=== PATIENT | male | born 1990 | race Caucasian/White ===

== ENCOUNTER 2016-06-13 16:23 | Emergency (ER) | payer SELFPAY ==
--- NOTE | 2016-06-13 16:45 | ED Physician Documentation ---
General Adult - HISTORIAN Historian: patient - HPI Chief Complaint: General Adult Onset: hours (15:30) Timing: still present Further Comments: yes (Patient states that he took atleast 25 seraquel 200mg tablets at about 3PM. Denies any other medications. Denies any drugs. Patietn states that he was jus trying to go to sleep. Denies that he was trying to harm himself. Patient denies any previous psychiatric problems. No previous suicide attempt. Take seraquil as a sleep aide.) - ROS CONST: no problems. denies: fever, chills - PAST HX Past History: none Other History: none Surgeries/Procedures: none Allergies/Adverse Reactions: Allergies Allergy/AdvReac Type Severity Reaction Status Date / Time No Known Allergies Allergy Verified 06/13/16 17:16 Home Medications: Ambulatory Orders Medication Instructions Recorded NK [NK] 06/13/16 - SOCIAL HX Smoking History: less than 1 pack/day Alcohol Use: rarely (had a shot of vodka earlier today) Drug Use: none - FAMILY HX Family History: Yes - REVIEWED ASSESSMENTS Nursing Assessment Reviewed: Yes Vitals Reviewed: Yes Progress - Progress Progress: Patient has exhibited increasing lethargy during his ED stay. Patient had to have oxygen at 2 liters per nasal canula to maitain SAO2 greater then 92% 18:00 Preparing for RSI, SaO2 General Adult Physical Exam - PHYSICAL EXAM GENERAL APPEARANCE: no distress EENT: eye inspection normal, no signs of dehydration NECK: normal inspection, thyroid normal, supple. No: lymphadenopathy RESPIRATORY: no resp distress, breath sounds normal. No: wheezes, rales, rhonchi CVS: heart sounds normal, equal pulses, tachycardia (130s). No: murmur ABDOMEN: soft, no organomegaly, normal bowel sounds, no distension SKIN: warm/dry, normal color EXTREMITIES: non-tender, normal range of motion NEURO: oriented X3, CN's nml as tested, motor nml, sensation nml, mood/affect nml, cognition normal Discharge Clincal Impression: seroquel overdose Referrals: Primary Doctor,No [Primary Care Provider] - 2 Days Home Medications: Ambulatory Orders NK [NK] 06/13/16 Condition: Fair Disposition: 02 XFER [facility]M HOSP Decision to Admit: [id number] Date of Decison to Admit: 06/13/16 Decision Time: 17:09
[2016-06-13] MEDS ORDERED: 0.9 % SODIUM CHLORIDE 1,000 ML IV SCH (17:00)
[2016-06-13 17:03] LABS: BASOPHILS % 0.8 (0.0-1.5); EOSINOPHILS % 5.8 % (0.0-6.8); LYMPHOCYTES # 2.5 # k/uL (0.6-4.0); MEAN CORPUSCULAR HEMOGLOBIN 30.4 pg (28.0-34.0); MONOCYTES # 0.3 # k/uL (0.0-0.9); NEUTROPHILS # 1.9 # k/uL (1.4-7.7)
[2016-06-13 17:10] LABS: AMPHETAMINE NEGATIVE ng/mL (<1000); BARBITURATES NEGATIVE ng/mL (<300); CANNABINOIDS NEGATIVE ng/mL (<50); COCAINE NEGATIVE ng/mL (<150); METHAMPHETAMINE NEGATIVE ng/mL (<1000); METHYLENEDIOXYMETHAMPHETAMINE NEGATIVE ng/mL (<500)
[2016-06-13 17:15] LABS: eGFR (African) > 60; eGFR (Non-African) > 60
[2016-06-13 17:23] LABS: APPEARANCE,URINE Clear (CLEAR); COLOR,URINE Yellow (YELLOW); OCCULT BLOOD,URINE Negative (NEGATIVE); PH URINE 6.5 (5.0 - 8.0); UROBILINOGEN URINE 0.2 Eu (0.2-1.0)
[2016-06-13 17:30] LABS: AMORPHOUS SEDIMENT,UR FEW (NEGATIVE)
[2016-06-13 20:01] VITALS: BP 125/68
[2016-06-13] MEDS ORDERED: 0.9 % SODIUM CHLORIDE 1,000 ML IV ONE (22:52)
[2016-06-13] MEDS ORDERED: ROCURONIUM BROMIDE 10 MG/ML 5ML VIAL ONE (23:16)
[2016-06-13] MEDS ORDERED: SUCCINYLCHOLINE CHLORIDE 20 MG/ML 10ML VIAL ONE (23:17)
[2016-06-13] MEDS ORDERED: MIDAZOLAM HCL 5 MG/5 ML VIAL IVP ONE (23:26)
== END 2016-06-13 18:30 | disposition short-term general hospital (02) ==
LOC: ED 16:23
DX: T43.591A Poisoning by other antipsychotics and neuroleptics, accidental (unintentional), initial encounter (principal)
CPT/HCPCS: 80053; 80377; 81002; 85025; 93005; J0330; J2250; J7030; 51701; 96361; 96374; 96375; 99283; G0481; S1016